=== PATIENT | female | born 1935 | race Caucasian/White ===

== ENCOUNTER 2017-10-22 12:00 | Outpatient (CLI) | payer OTHER | END 2017-10-22 12:01 | disposition home or self-care (01) | LOC: FCC-LAB 12:00 | PROVIDERS: ATTEND Family Medicine | DX: D64.9 Anemia, unspecified (principal); E87.6 Hypokalemia; E55.9 Vitamin D deficiency, unspecified; E78.5 Hyperlipidemia, unspecified; E03.9 Hypothyroidism, unspecified | CPT/HCPCS: 36415; 80053; 80061; 82306; 84439; 84443; 85025 ==

== ENCOUNTER 2018-01-04 12:14 | Outpatient (CLI) | END 2018-01-04 12:15 | disposition home or self-care (01) | LOC: FCC-LAB 12:14 | PROVIDERS: ATTEND Family Medicine | DX: R10.13 Epigastric pain (principal); E03.9 Hypothyroidism, unspecified; Z85.05 Personal history of malignant neoplasm of liver; Z87.19 Personal history of other diseases of the digestive system; Z85.048 Personal history of other malignant neoplasm of rectum, rectosigmoid junction, and anus; Z85.810 Personal history of malignant neoplasm of tongue | CPT/HCPCS: 36415; 80053; 83690; 84443; 85025 ==

== ENCOUNTER 2018-11-09 10:57 | Outpatient (CLI) | END 2018-11-09 10:58 | disposition home or self-care (01) | LOC: RHC-LAB 10:57 → FCC-LAB 10:58 | PROVIDERS: ATTEND Family Medicine | DX: R63.4 Abnormal weight loss (principal); Z68.1 Body mass index [BMI] 19.9 or less, adult; R41.89 Other symptoms and signs involving cognitive functions and awareness; R53.81 Other malaise | CPT/HCPCS: 36415; 80053; 81001; 84443; 85025; 87086 ==